=== PATIENT | male | born 1950 | race Caucasian/White ===

== ENCOUNTER → 2024-10-06 | Outpatient (CLI) | payer MEDICARE ==
[~2024-10-06] MED LIST: IOHEXOL-350 75 ML VIAL IV ONE
--- NOTE | 2024-10-06 13:42 | HMCIMG ---
CT ANGIO HEAD AND NECK HISTORY: Disorder of arteries COMPARISON: None TECHNIQUE: CT angiography of the head was performed. The study was performed using angiographic technique with maximum intensity projection reconstruction images. Patient was given 150 cc of Omnipaque through intravenous route. FINDINGS: The ventricles and extraventricular CSF spaces are nondilated for patient's age. There is no midline shift, mass effect or herniation. No acute intracranial bleed is seen. Visualized portion of the paranasal sinuses are grossly within normal limits. No CT evidence of cerebral aneurysm or abnormal arteriovenous communication is seen. Diffuse atherosclerosis changes are present. Vertebrobasilar arterial system is grossly within normal limits. IMPRESSION: CTA Head 1. Atherosclerotic disease. Otherwise unremarkable CTA of the brain. TECHNIQUE: CT angiography of the neck was performed. The study was performed using angiographic technique with maximum intensity projection reconstruction images. FINDINGS: There are degenerative changes of the cervical spine. Parapharyngeal fat planes are preserved bilaterally. The airway is patent. Normal enhancement of the thyroid gland is noted. COPD changes are seen with interstitial fibrosis. The common, internal and external carotid arteries are visualized. 40-60% stenosis is seen of the internal carotid arteries bilaterally. Both vertebral arteries are seen with antegrade flow. IMPRESSION: CTA Neck 1. Atherosclerotic disease. 40-60% stenosis is seen of the internal carotid arteries bilaterally. CT was performed with one or more following dose reduction techniques: automated exposure control, adjustment of the mA and kv according to patient's size, or use of a iterative reconstruction technique.
== END | disposition home or self-care (01) ==
LOC: RAH 09:14
PROVIDERS: ATTEND Student in an Organized Health Care Education/Training Program
DX: I70.8 Atherosclerosis of other arteries (principal); I77.9 Disorder of arteries and arterioles, unspecified
CPT/HCPCS: 70496; 70498; Q9967